=== PATIENT | female | born 2000 | race Caucasian/White ===

== ENCOUNTER 2018-04-10 13:08 | Emergency (ER) | payer BC | END 2018-04-10 16:01 | disposition home or self-care (01) | LOC: FTE 16:01 | DX: H00.012 Hordeolum externum right lower eyelid (principal) | CPT/HCPCS: 99283 ==

== ENCOUNTER 2018-10-11 | Emergency (ER) | payer SELFPAY, BC | END 2018-10-11 01:38 | disposition left against medical advice (07) | LOC: FTE | DX: Z53.21 Procedure and treatment not carried out due to patient leaving prior to being seen by health care provider (principal) ==